=== PATIENT | female | born 1950 | race Caucasian/White ===

== ENCOUNTER → 2017-09-28 11:24 | Outpatient (REF) | payer MEDICARE, SELFPAY ==
[2017-09-28 20:32] LABS: Anion Gap 13.5 mmol/L (3-11); BUN 11 mg/dL (7-18); CO2 24.5 mmol/L (21.0-32.0); CREATININE 1.14 mg/dL (0.55-1.02); Chloride 105 mmol/L (98-107); Glucose 128 mg/dL (70-100); Potassium 4.4 mmol/L (3.5-5.1); Sodium 143 mmol/L (136-145)
== END ==
LOC: NCHCN 11:24
PROVIDERS: PCP Physician Assistant Medical; Visit Provider Physician Assistant Medical
DX: R79.89 Other specified abnormal findings of blood chemistry (principal)
CPT/HCPCS: 80048

== ENCOUNTER 2017-11-01 10:10 | Outpatient (REF) | payer MEDICARE, SELFPAY ==
[2017-11-01 23:41] LABS: ALT 32 U/L (12-78); AST 34 U/L (15-37); Albumin 4.3 g/dL (3.4-5.0); Alkaline Phosphatase 60 U/L (46-116); Anion Gap 15.7 mmol/L (3-11); BUN 13 mg/dL (7-18); Bilirubin, Total 0.6 mg/dL (0.2-1.0); CO2 23.3 mmol/L (21.0-32.0); CREATININE 0.96 mg/dL (0.55-1.02); Calcium 9.2 mg/dL (8.5-10.1); Chloride 102 mmol/L (98-107); Cholesterol 247 mg/dL (50-200); Glucose 74 mg/dL (70-100); HDL Cholesterol 120 mg/dL (40-60); LDL CHOLESTEROL 104 mg/dL (<100); Potassium 4.1 mmol/L (3.5-5.1); Sodium 141 mmol/L (136-145); TSH 1.83 uIU/mL (0.358-3.74); Total Protein 7.6 g/dL (6.4-8.2); Triglyceride 44 mg/dL (30-150)
== END 2017-11-01 10:30 ==
LOC: NCHCN 10:10
PROVIDERS: PCP Physician Assistant Medical; Visit Provider Physician Assistant Medical
DX: E78.5 Hyperlipidemia, unspecified (principal); E03.9 Hypothyroidism, unspecified
CPT/HCPCS: 80053; 80061; 83721; 84443

== ENCOUNTER 2018-07-12 09:23 | Outpatient (REF) | payer MEDICARE, SELFPAY ==
[2018-07-12 21:53] LABS: BUN 20 mg/dL (7-18); Calcium 9.6 mg/dL (8.5-10.1); Chloride 99 mmol/L (98-107); Estimated GFR 49.25 (mL/min/1.73m2); Ferritin 138 ng/mL (8-388); Glucose 89 mg/dL (70-100); Magnesium 1.3 mg/dL (1.8-2.4); Potassium 4.5 mmol/L (3.5-5.1); Sodium 136 mmol/L (136-145)
[2018-07-12 22:05] LABS: Abs Immature Grans 0.01 k/cumm (0.0-0.09); Absolute Basophil Count 0.03 k/cumm (0.0-0.2); Absolute Lymphocyte Count 1.89 k/cumm (1.2-3.4); Absolute Monocyte Count 0.44 k/cumm (0.11-0.7); Absolute Neutrophil Count 3.84 k/cumm (1.2-6.7); Basophils % 0.5; Eosinophils % 1.6; HCT 39.9 % (36.0-46.0); HGB 13.2 g/dL (12.0-15.5); Immature Grans % 0.2; Mean Corp. HGB Concentration 33.1 g/dL (32.0-36.0); Mean Corpuscular Volume 93.7 fL (80-95); Mean Platelet Volume 11.7 fL (8.0-11.0); Neutrophils % 60.7; Platelet Count 325 x1000/uL (130-400); RBC 4.26 m/cumm (4.00-5.20); RBC Distribution Width 13.2 % (11.7-14.6); White Blood Cell Count 6.31 k/cumm (4.4-10.8)
[2018-07-12 22:42] LABS: Creatine Kinase 79 U/L (26-192)
== END 2018-07-12 09:43 ==
LOC: NCHCN 09:23
PROVIDERS: PCP Physician Assistant Medical; Visit Provider Physician Assistant Medical
DX: R79.89 Other specified abnormal findings of blood chemistry (principal); G25.81 Restless legs syndrome
CPT/HCPCS: 80048; 82550; 82728; 83735; 85025

== ENCOUNTER 2020-11-05 09:47 | Outpatient (REF) | payer MEDICARE, SELFPAY ==
[2020-11-05 20:31] LABS: ALT 50 U/L (14-59); AST 40 U/L (15-37); Alkaline Phosphatase 56 U/L (46-116); Anion Gap 13.5 mmol/L (3-11); BUN 8 mg/dL (7-18); Bilirubin, Total 0.7 mg/dL (0.2-1.0); CO2 24.5 mmol/L (21.0-32.0); CREATININE 0.8 mg/dL (0.55-1.02); Calcium 9.1 mg/dL (8.5-10.1); Calculated LDL 92 mg/dL (<100); Chloride 107 mmol/L (98-107); Cholesterol 203 mg/dL (<200); Glucose 79 mg/dL (74-106); HDL Cholesterol 102 mg/dL (40-60); Potassium 4.1 mmol/L (3.5-5.1); Sodium 145 mmol/L (136-145); TSH 1.71 uIU/mL (0.36-3.74); Total Protein 6.9 g/dL (6.4-8.2); Triglyceride 49 mg/dL (<150)
== END 2020-11-05 09:48 | disposition home or self-care (01) ==
LOC: NCHCN 09:47
PROVIDERS: PCP Physician Assistant Medical; Visit Provider Physician Assistant Medical
DX: E78.5 Hyperlipidemia, unspecified (principal); I10 Essential (primary) hypertension; E03.9 Hypothyroidism, unspecified
CPT/HCPCS: 80053; 80061; 84443

== ENCOUNTER 2022-07-16 12:49 | Outpatient (REF) | payer MEDICARE, SELFPAY ==
[2022-07-16 16:11] LABS: Iron 113 ug/dL (50-170); Total Iron Binding Capacity 257 ug/dL (250-450); Transferrin Sat 44 % (15-50)
[2022-07-16 16:41] LABS: Ferritin 207 ng/mL (8-252); TSH 2.38 uIU/mL (0.36-3.74); Vitamin B12 128 pg/mL (193-986)
== END 2022-07-16 12:50 | disposition home or self-care (01) ==
LOC: NCHCN 12:49
PROVIDERS: PCP Physician Assistant Medical; Visit Provider Physician Assistant Medical
DX: D64.9 Anemia, unspecified (principal); E03.9 Hypothyroidism, unspecified; E53.8 Deficiency of other specified B group vitamins
CPT/HCPCS: 82607; 82728; 83540; 83550; 84443

== ENCOUNTER → 2022-09-24 13:17 | Outpatient (BNVA) | payer MEDICARE, SELFPAY | PROVIDERS: PCP Physician Assistant Medical; Referring Provider Physician Assistant Medical; Visit Provider Physical Therapy Assistant | DX: Z12.11 Encounter for screening for malignant neoplasm of colon (principal); Z86.010 Personal history of colon polyps; Z80.0 Family history of malignant neoplasm of digestive organs ==

== ENCOUNTER 2022-10-08 09:06 | Day surgery (SDC) | payer MEDICARE, SELFPAY ==
--- NOTE | 2022-10-07 18:40 | ANES.PREOP_ITS ---
General Info Date of Service Date Performed: 10/08/22 Height: 5 ft 1 in Weight: 62.142 kg Body Mass Index (BMI): 25.9 Surgical Procedure: Operation Date: 10/08/22 10:50 Proposed Procedure Side Surgeon bertha Alvarez MD Meds Allergies and Home Medications Allergies Allergy/AdvReac Type Severity Reaction Status Date / Time No Known Allergies Allergy Verified 10/08/22 09:27 Home Medication Medication Instructions Recorded levothyroxine 75 mcg tablet 75 mcg PO DAILY 07/12/17 (Synthroid) lisinopril 20 mg tablet (Zestril) 20 mg PO DAILY 07/12/17 pantoprazole 40 mg tablet,delayed 40 mg PO DAILY 09/10/17 release alendronate 70 mg tablet 70 mg PO QWEEK 09/24/22 anastrozole 1 mg tablet 1 mg PO DAILY 09/24/22 atorvastatin 80 mg tablet 40 mg PO DAILY 09/24/22 biotin 10,000 mcg capsule 40 mcg PO DAILY 09/24/22 calcium carbonate 600 mg calcium 1,200 mg PO DAILY 09/24/22 (1,500 mg) tablet (Calcium) docusate sodium 100 mg capsule 200 mg PO DAILY 09/24/22 (Stool Softener) ferrous sulfate 325 mg (65 mg 325 mg PO DAILY 09/24/22 iron) tablet hydralazine 50 mg tablet 50 mg PO BID 09/24/22 propranolol 80 mg tablet 80 mg PO BID 09/24/22 Current Visit Medications: Current Medications Generic Name Dose Route Start Last Admin Trade Name Freq PRN Reason Stop Dose Admin Ringer's Solution 1,000 mls @ 80 mls/hr 10/08/22 06:00 IV 11/06/22 23:59 INFUSION ANJALI IV Miscellaneous Supplies 1 each 10/08/22 06:00 Iv Access IV 11/06/22 23:59 DIRECTED ANJALI Sodium Chloride 0 ml 10/08/22 06:00 Normal Saline Flush 10 Ml Syr IV 11/06/22 23:59 PRN PRN Sodium Chloride 0 ml 10/08/22 06:00 Normal Saline 10 Ml Vial IJ 11/06/22 23:59 DIRECTED PRN Sterile Water 0 ml 10/08/22 06:00 Water,Injection,Sterile 10 Ml Vial IJ 11/06/22 23:59 DIRECTED PRN [facility] Medical History Medical History (Updated 10/08/22 @ 09:26 by Yi Jennings, RN) Elevated serum creatinine Family history of colon cancer Fibrocystic breast disease GERD (gastroesophageal reflux disease) History of left breast cancer History of tobacco use Hx of breast cancer Hyperlipidemia Hypertension Hypothyroidism Osteoporosis Postmenopausal status Surgical History Surgical History (Updated 10/08/22 @ 09:27 by Yi Jennings, RN) Colonoscopy - MAC 2011-normal colonoscopy with MAC (09/20/17) Hx of total mastectomy of left breast partial mastectomy and lymph node removed Tobacco Smoking/Tobacco Use Status: Former Tobacco Use Alcohol Alcohol Intake: current Alcohol intake frequency: 0-2 drinks per day Substance Use Substance use: Never Substance use type: does not use Vital Signs and Lab Results Vital Signs Most Recent Vital Signs in EMR: Temp Pulse Resp Pulse Ox 36.6 C 71 17 97 10/08/22 09:16 10/08/22 09:16 10/08/22 09:16 10/08/22 09:16 Lab Results Blood Type / Crossmatch: No Data to Display Complete Blood Count: No Data to Display Complete Metabolic Panel: No Data to Display Liver Function Panel: No Data to Display Coagulation Panel: No Data to Display Cardiac Panel: No Data to Display Arterial Blood Gas: No Data to Display Venous Blood Gas: No Data to Display Pancreas Panel: No Data to Display Thyroid Panel: No Data to Display Infectious Disease: No Data to Display Blood Cultures: No Data to Display Toxicology Panel: No Data to Display Anesthesia Assessment and Plan Anesthesia History Personal History: No History of Anesthesia Complications Family History: No Family History of Anesthesia Complications Exercise Tolerance Exercise Tolerance: Metabolic Equivalents>4 Cardiac & Pulmonary Exam Cardiac Exam: Normal S1/S2 Heart Sounds Pulmonary Exam: Clear Bilateral Breath Sounds Implantable Cardiac Device Does patient have a Pacemaker or an ICD?: No Airway Exam Known Difficult Airway: No Mallampati Class: 4 Mouth Opening: Narrow (< 3cm) Thyromental Distance: Less than 3 cm Neck Range of Motion: Limited ROM Neck Circumference: Normal Teeth Condition: Removable Dentures/Plates Upper and Removable Dentures/Plates Lower ASA Classification ASA Score: ASA 3 Emergency Case?: No NPO Status NPO Status: NPO Clears >2 hours, Solids >8 hours Anesthesia Plan Resuscitation Status: Full Code Anesthesia Technique: General Anesthesia Airway Planned: Natural Airway Monitors Used: Standard Monitors Preoperative Comments:: 71 yo female for colo. Sig PMHx: HTN (is 200/100s today, does not check herself at home. States that her medications have been changed recently to work on control. feels fine and is just nervous - she was 160/80s during her office visit.), hypothyroid (stable on meds), GERD (well controlled), breast CA, former smoker, occ EtOH. Previous Anes: -colo, prop, natural airway, no issues.
--- NOTE | 2022-10-07 22:45 | W.PM.DSUDISC ---
Date of service: 10/08/22 Time of Service: 11:22 Discharge Plan Disposition Patient Disposition: Home Condition: Good Discharge Details Reason For Visit: Screening colonoscopy Attending Provider: Angel Alvarez Primary Care Provider: Cole Santiago Home Meds and New Rx's Prescriptions: Continued hydralazine 50 mg tablet 50 mg PO BID propranolol 80 mg tablet 80 mg PO BID atorvastatin 80 mg tablet 40 mg PO DAILY anastrozole 1 mg tablet 1 mg PO DAILY calcium carbonate [Calcium 600] 600 mg calcium (1,500 mg) tablet 1,200 mg PO DAILY alendronate 70 mg tablet 70 mg PO QWEEK ferrous sulfate 325 mg (65 mg iron) tablet 325 mg PO DAILY docusate sodium [Stool Softener] 100 mg capsule 200 mg PO DAILY biotin 10,000 mcg capsule 40 mcg PO DAILY lisinopril [Zestril] 20 MG tablet 20 mg PO DAILY levothyroxine [Synthroid] 75 MCG tablet 75 mcg PO DAILY pantoprazole 40 MG tablet,delayed release (DR/EC) 40 mg PO DAILY Discontinued polyethylene glycol 3350 17 gram/dose powder 238 g PO ONCE Qty: 238 0RF Rx Instructions: take per colonoscopy instructions bisacodyl [Dulcolax (bisacodyl)] 5 mg tablet,delayed release (DR/EC) 5 mg PO ONCE Qty: 4 0RF Rx Instructions: take per colonoscopy instructions Discharge Instructions Additional Instructions: Sara, we were able to complete your colonoscopy today. In the first portion of your large intestine, which is right where the small intestine connects in, I found 4 large polyps. I removed 3 of these completely. Unfortunately, the other one is too too large for me to remove with a colonoscope here at [facility]. I did take a specimen of it to use as a biopsy in order to provide a formal diagnosis. I found 1 another large polyp just a short distance away from this first cluster. I removed that fifth polyp completely. This leaves you with 1 unresected polyp. Everything that I removed will be sent off to the pathologist for careful examination in order to check for colon cancer. It will take about a week or 2 for me to get the final results. Hopefully, I will get them sooner. Certainly, as soon as I have the information I will call you to share my opinion. I have also taken the liberty of making a follow-up appointment with you in our office on October 21 at 9:45 in the morning to discuss this all in more detail. If it turns out that there is cancer in any one of the specimens, then I suspect I will recommend an operation to remove that part of your large intestine. If it turns out that these are all just colon polyps, without signs of true cancer, then we will still need to address the large polyp that I was not able to remove. It might be the case that this could be removed with a colonoscope (he procedure you had done today), rather than with a formal operation. If that is the case, you would have to go down to [facility] for their opinion. As I mentioned above, the first step is waiting for the pathology report to get the formal tissue diagnosis. If you have any questions in the meantime, please do not hesitate to call at any time. 1. If tolerated, consume a soft, low fiber diet for 1-2 days. 2[address] Do not drive, drink alcohol, operate machinery, make critical decisions, or do activities that require coordination or balance for 24 hours. 3. Because air was put into your colon during the procedure, expelling air from your rectum (passing gas or farting) is normal. 4. You may not have a bowel movement for 1-3 days because of the colonoscopy prep. This is normal. 5. Go directly to the emergency room if you notice any of the following: Develop chills (warm to touch), or if you have a thermometer and your temperature is above 101 Difficulty breathing or difficultly swallowing Persistent vomiting Severe abdominal pain, other than gas cramps Severe chest pain Black, tarry stools Any bleeding ? exceeding one tablespoon 6. Call your physician if the site where your intravenous was started becomes red, swollen, painful, and warm to touch. 7. Your physician has reviewed your pre-procedure medications. Please continue to take those medications as previously ordered. You will be given specific information/education regarding any changes to your medications before leaving. Activity:: Activity as Tolerated Diet:: As Tolerated Discharge Orders Discharge Orders: Discharge Order (Routine); Ordered 10/07/22 Ordered By: Angel Alvarez DS: Diagnosis Discharge Diagnosis (1) Screen for colon cancer: Status: Acute Asessment and Plan: Follow-up in my office on October 21 at 8:45 AM
--- NOTE | 2022-10-07 22:47 | W.COLOREPORT ---
Date of service: 10/08/22 Time of Service: 11:26 Colonoscopy Report Date of procedure: 10/08/22 Pre-op diagnosis general: Screening colonoscopy Post-op diagnosis procedure note: other (Cecal polyps) Procedure: Colonoscopy with polypectomy x4, and 1 incomplete polypectomy Surgeon: Angel Alvarez Anesthesia Type: General:No Airway Estimated blood loss (mL): 5 Pathology: other (Cecal polyps x4, colon polyp at 75 cm) Complications: None Disposition: same day Indications: Sara is a 71-year-old woman with a past medical history of adenomatous polyps. She is here for her next screening colonoscopy. Prep: Miralax/Dulcolax Procedure Start Time: 10:30 Procedure End Time: 10:59 Retraction Time: 18 Findings: Incomplete resection of large sessile cecal polyposis. Complete polypectomy of cecal polyps x3, as well as a polyp at 75 cm Procedure Description: After the induction of monitored anesthetic care, and with the patient in left lateral decubitus position, I began by performing an external anorectal exam.? Perineum and skin were normal, as was the anal verge.? There was no evidence of external hemorrhoids.? Next, I performed a digital rectal exam.? I did not appreciate any abnormal findings.? Next, I advanced a colonoscope into the rectal vault.? I performed retroflexion.? This appeared normal.? Using insufflation, I then advanced the colonoscope beyond the rectal folds and into the sigmoid colon before advancing towards the cecum.? The quality of the prep was excellent.? The scope was noted to be in the cecum by identification of the ileocecal valve and appendiceal orifice.? Within the base of the cecum was a large area of cecal polyposis. I would estimate it to be greater than 2-1/2 cm in its maximal dimension. I was able to obtain a portion of this with energized snare polypectomy for a tissue diagnosis. Immediately adjacent to the appendix was another polyp. This was more pedunculated. It was approximately 1 cm in size. I removed this completely with energized snare polypectomy and there was minimal bleeding here as well. Just a few centimeters away were 2 other cecal polyps. Both were pedunculated. Both were about 1 to 1-1/2 cm in size. I removed these both with energized snare polypectomy as well. I then began withdrawing the colonoscope using repeated irrigation as necessary for full evaluation of the colonic mucosa. Around 75 cm from the anal verge, which seem to be still in the ascending colon was another polyp. This was about 1.5 cm. It was slightly pedunculated. I removed it with energized snare polypectomy. There was a moderate amount of mostly sigmoid diverticulosis, but there were some occasional diverticula in other portions of the colon as well. Once the scope was withdrawn to the level of the rectum, great care was taken to examine portions of the rectal folds.? Finally, the scope was withdrawn and the patient was brought to the same-day surgery recovery unit as the anesthetic wore off. ?The findings and instructions were shared with the patient prior to discharge.
[2022-10-08 09:16] VITALS: PULSE 71; RESP 17; TEMP 36.6; O2SAT 97
[2022-10-08] MEDS: Lactated Ringers 1,000 ML 80 ML IV (09:37)
[2022-10-08 09:51] VITALS: BMI 25.9
--- NOTE | 2022-10-08 10:44 | BOWEL_PTH ---
PATIENT: Sara Epperson LOC: [facility] U#:[id number] AGE/SX: 71/F ROOM: RE10/08/[address]: Angel Alvarez MD : [id number] BED: DIS: 10/08/2022 SPEC #: [id number] RECD: 10/08/22 12:51 STATUS: SHEREE RE #: [id number] LEE: 10/08/22 10:[address]: Angel Alvarez DEPT: Surgical Specimen RECD BY: Nay Romo ENTERED: 10/08/22 12:52 SP TYPE: Bowel OTHR DR: Cole Santiago Tissues: 1 - BIOPSY BOWEL 2 - BIOPSY BOWEL 3 - BIOPSY BOWEL 4 - BIOPSY BOWEL Procedures: GROSS AND MICRO LEVEL 4 Comments: [id number]
[2022-10-08 11:05] VITALS: BP 154/70; PULSE 79; RESP 16; TEMP 36.2; O2SAT 95
[2022-10-08 11:30] VITALS: BP 171/77; PULSE 65; RESP 16; TEMP 36.2; O2SAT 96
--- NOTE | 2022-10-08 11:35 | W.ANESPOSTOP ---
Postoperative Evaluation Date, Time and Location Date Performed: 10/08/22 Time Performed: 11:35 Patient Location: Day Surgery Unit Vital Signs Most Recent Imported Vital Signs: Most Recent Vital Signs Temp Pulse Resp BP Pulse Ox 36.2 C L 79 16 154/70 H 95 10/08/22 11:05 10/08/22 11:05 10/08/22 11:05 10/08/22 11:05 10/08/22 11:05 Pain Score Most Recent Pain Score: Most Recent Pain Score Pain Level 0 10/08/22 11:05 Assessment Mental Status: Awake (Alert & Oriented to Patient Baseline) Airway and Respiratory Function: Patent airway with normal (patient baseline) respiratory exam Cardiovascular Function: Hemodynamically Stable Hydration Status: Adequately Hydrated Nausea & Vomiting: No Nausea or Vomiting Pain: Pt. Denies Any Pain Peripheral Nerve Block: Patient did not receive a nerve block
== END 2022-10-08 12:10 | disposition home or self-care (01) ==
PROVIDERS: PCP Physician Assistant Medical; Visit Provider Surgery
PROC: 0DJD8ZZ Inspection of Lower Intestinal Tract, Via Natural or Artificial Opening Endoscopic (ICD-10-PCS; CPT 45378; principal; 2022-10-08 10:45)
DX: Z12.11 Encounter for screening for malignant neoplasm of colon (principal); D12.0 Benign neoplasm of cecum; Z86.010 Personal history of colon polyps; D12.4 Benign neoplasm of descending colon
CPT/HCPCS: 45385; 88305; J0360

== ENCOUNTER → 2022-10-21 08:34 | Outpatient (BNVA) | payer MEDICARE, SELFPAY | PROVIDERS: PCP Physician Assistant Medical; Referring Provider Physician Assistant Medical; Visit Provider Surgery | DX: Z48.815 Encounter for surgical aftercare following surgery on the digestive system (principal); D36.9 Benign neoplasm, unspecified site | CPT/HCPCS: 99213 ==

== ENCOUNTER → 2023-07-08 13:47 | Outpatient (BNVA) | payer MEDICARE, SELFPAY | PROVIDERS: PCP Physician Assistant Medical; Referring Provider Physician Assistant Medical; Visit Provider Urology | DX: N81.10 Cystocele, unspecified (principal) | CPT/HCPCS: 99215 ==